=== PATIENT | male | born 1960 | race Caucasian/White ===

== ENCOUNTER 2016-12-01 12:08 | Emergency (ER) | payer SELFPAY | END 2016-12-01 13:17 | disposition home or self-care (01) | LOC: ER 12:08 | DX: S33.5XXA Sprain of ligaments of lumbar spine, initial encounter (principal); X50.0XXA Overexertion from strenuous movement or load, initial encounter; Z86.718 Personal history of other venous thrombosis and embolism; F17.210 Nicotine dependence, cigarettes, uncomplicated | CPT/HCPCS: 72100; 96372; 99283; 99283-25 ==